=== PATIENT | male | born 1965 | race American Indian/Alaskan Native ===

== ENCOUNTER 2017-08-07 23:22 | Emergency (ER) | payer SELFPAY ==
[2017-08-08 00:41] LABS: Bilirubin,Urine NEG (Negative); Blood,Urine SM (Negative); Color,Urine Yellow (Yellow); Protein,Urine <15 mg/dL mg/dL (Negative); Urobilinogen,Urine < 2.0 mg/dL (<2.0)
--- NOTE | 2017-08-08 05:44 | Cat Scan Report ---
FINAL REPORT EXAM: CT HEAD/BRAIN WO CON HISTORY: headache TECHNIQUE: Routine axial imaging was obtained of the brain without IV contrast. FINDINGS: The ventricular system is appropriate in size and is symmetric. There is no evidence of acute stroke or hemorrhage. The basal cisterns appear normal. The visualized sinuses are clear. The mastoid air cells are well pneumatized. The calvarium appears normal. IMPRESSION: Within normal limits.
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
[2017-08-08] MEDS ORDERED: ZESTRIL PO ONE (06:11)
[2017-08-08 06:16] VITALS: BP 168/104
== END 2017-08-08 06:26 | disposition home or self-care (01) ==
LOC: ED 23:22
DX: I10 Essential (primary) hypertension (principal); F17.200 Nicotine dependence, unspecified, uncomplicated
CPT/HCPCS: 70450; 81001; 99284

== ENCOUNTER 2017-12-03 03:01 | Inpatient (IN) | payer SELFPAY ==
[2017-12-03] MEDS ORDERED: CATAPRES PO ONE (03:24)
[2017-12-03 03:36] LABS: Basophils # (Auto) 0.1 K/mm3 (0.0-0.1); Eosinophils # (Auto) 0.2 K/mm3 (0.0-0.4); Eosinophils % (Auto) 1.7 % (0.0-4.3); Hematocrit 34.1 % (35.5-45.6); Lymphocytes # (Auto) 1.7 K/mm3 (1.2-5.4); Lymphocytes % (Auto) 19.1 % (13.4-35.0); Mean Corpuscular HGB Conc 35 % (32-34); Mean Corpuscular Hemoglobin 33 pg (28-32); Mean Corpuscular Volume 93 fl (84-94); Monocytes # (Auto) 0.5 K/mm3 (0.0-0.8); Monocytes % (Auto) 5.8 % (0.0-7.3); Platelet Count 237 K/mm3 (140-440); Red Blood Count 3.67 M/mm3 (3.65-5.03); Red Cell Distribution Width 14.3 % (13.2-15.2)
--- NOTE | 2017-12-03 03:46 | XRay Report ---
FINAL REPORT EXAM: XR CHEST ROUTINE 2V HISTORY: Shortness of breath TECHNIQUE: PA and lateral views of the chest were obtained. FINDINGS: The heart is mildly enlarged. The lungs reveal diffuse interstitial prominence with thickening of the fissures. Congestive heart failure is suspected. There is minimal pleural fluid in 1 of the costophrenic sulci. The skeletal structures otherwise appear well maintained. IMPRESSION: Cardiomegaly with congestive heart failure pattern.
[2017-12-03 03:53] LABS: Calcium 9.2 mg/dL (8.4-10.2)
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
[2017-12-03] MEDS ORDERED: NITRO-BID 2% TP ONE (04:35)
[2017-12-03] MEDS ORDERED: LASIX 80 MG in NACL 0.9% 50 ML IV ONE (04:36)
[2017-12-03] MEDS ORDERED: NITROSTAT SL ONE (04:36)
[2017-12-03] MEDS ORDERED: BABY ASPIRIN PO ONE (04:42)
[2017-12-03 05:13] LABS: INR 1.11 (0.87-1.13)
[2017-12-03 05:14] LABS: Partial Thromboplastin Time 30.9 Sec. (24.2-36.6)
[2017-12-03 05:21] LABS: Alanine Aminotransferase 25 units/L (7-56); Albumin 3.7 g/dL (3.9-5)
[2017-12-03] MEDS ORDERED: TYLENOL PO PRN (05:31)
[2017-12-03] MEDS ORDERED: SODIUM CHLORIDE FLUSH SYRINGE 10 ML IV PRN (05:31)
[2017-12-03] MEDS ORDERED: ZOFRAN IV PRN (05:31)
[2017-12-03 05:38] LABS: Bilirubin,Direct < 0.2 mg/dL (0-0.2)
--- NOTE | 2017-12-03 05:41 | History and Physical Report ---
History of Present Illness Date of examination: 12/03/17 History of present illness: 51-year-old man with a history of hypertension, noncompliant with medication at times can't emergency room with complaints of shortness of breath, PND, orthopnea times one week. Also complaining his abdomen feeling tight Review of systems Constitutional: no weight loss, chills, fever Ears, eyes, nose, mouth and throat: no nasal congestion, no nasal discharge, no sinus pressure, no vision change, no red eye. Neck: No neck pain or rigidity. Cardiovascular: no chest pain, palpitations Respiratory: no cough Gastrointestinal: no abdominal pain hematochezia Genitourinary : no frequency , no hematuria Musculoskeletal: no joint swelling or muscle ache Integumentary: no rash, no pruritis Neurological: no parathesias, no numbness, no focal weakness Endocrine: no cold or heat intolerance, no polyuria or polydipsia Hematologic/Lymphatic: no easy bruising, no easy bleeding, no gland swelling Allergic/Immunologic: no urticaria, no angioedema. PAST MEDICAL HISTORY: Hypertension PAST SURGICAL HISTORY: Left leg SOCIAL HISTORY: No alcohol, no drugs, smoke 1/2 pack/ day FAMILY HISTORY: Hypertension Medications and Allergies Allergies Allergy/AdvReac Type Severity Reaction Status Date / Time No Known Allergies Allergy Verified 08/07/17 23:34 Home Medications Medication Instructions Recorded Confirmed Last Taken Type Lisinopril [Zestril] 20 mg PO QDAY #30 tablet 08/08/17 Unknown Rx Exam - Physical Exam Narrative exam: Gen. appearance: Patient lying in bed, no apparent distress HEENT: Normocephalic, atraumatic, pupils equally round and reactive to light, extraocular movement intact, and no sclericterus,. No JVD or thyromegaly or nodule,neck supple, no carotid bruit ,mucous membranes moist, no exudate or erythema Heart: S1, S2, regular rate and rhythm Lungs: Crackles, breathing comfortable Abdomen: Positive bowel sounds, non-tender, nondistended, no organomegaly Extremity:no edema cyanosis, clubbing Skin: no rash, dry, warm Neuro: Oriented 3, cranial nerves II-12 intact, speech is fluent, motor and sensory intact - Constitutional Vitals: Temp Pulse Resp BP Pulse Ox 98.4 F 83 18 157/107 100 12/03/17 03:18 12/03/17 05:02 12/03/17 03:18 12/03/17 05:02 12/03/17 03:18 Results - Labs CBC & Chem 7: 12/03/17 03:24 12/03/17 03:24 Labs: Abnormal lab results 12/03/17 12/03/17 12/03/17 Range/Units 03:24 03:24 04:45 Hct 34.1 L (35.5-45.6) % MCH 33 H (28-32) pg MCHC 35 H (32-34) % Seg Neutrophils % 72.4 H (40.0-70.0) % BUN 26 H (9-20) mg/dL Creatinine 2.6 H (0.8-1.5) mg/dL Total Creatine Kinase 204 H (55-170) units/L Troponin T 0.045 H 0.040 H (0.00-0.029) ng/mL NT-Pro-B Natriuret Pep 5821 H (0-900) pg/mL Albumin (3.9-5) g/dL 12/03/17 Range/Units 04:45 Hct (35.5-45.6) % MCH (28-32) pg MCHC (32-34) % Seg Neutrophils % (40.0-70.0) % BUN (9-20) mg/dL Creatinine (0.8-1.5) mg/dL Total Creatine Kinase (55-170) units/L Troponin T (0.00-0.029) ng/mL NT-Pro-B Natriuret Pep (0-900) pg/mL Albumin 3.7 L (3.9-5) g/dL - Imaging and Cardiology EKG: image reviewed Chest x-ray: image reviewed Assessment and Plan Assessment New-onset CHF, probably systolic Hypertension malignant Renal failure, Probably chronic Noncompliance Plan Admit medicine Diurese with IV Lasix, start beta carlotta, aspirin No LUCY inhibitor secondary to the kidney failure Monitor I's and O's, daily weights Check echo, cardiac enzymes, consult cardiology DVT prophylaxis
[2017-12-03 06:57] LABS: Chol/HDL Ratio 4.25 %
[2017-12-03 07:29] LABS: Creatine Kinase MB 3.3 ng/mL (0.0-4.0)
[2017-12-03] MEDS: LASIX IV SCH ×2 (07:56→18:45)
--- NOTE | 2017-12-03 09:39 | Event Note ---
Date: 12/03/17 Patient seen and evaluated medical records reviewed Admitted this morning with chest tightness and shortness of breath Patient feels slightly better denies any chest pain this morning Vital signs reviewed Physical examination unremarkable Assessment and plan: --Chest pain/tightness; Evaluate for acute coronary syndrome, serial cardiac enzymes, echocardiogram Continue current cardiac medications, cardiology evaluation Possible stress test prior to discharge --Elevated cardiac enzymes; probably nonspecific, multiple risk factors Cardiology following, possible stress test prior to discharge if needed --Congestive heart failure; unknown ejection fraction Continue anti-failure medications, input output monitoring, low sodium diet --Hypertension; moderate control, continue current antihypertensives And when necessary hydralazine --Acute kidney injury; vasomotor nephropathy Gentle hydration, avoid nephrotoxins, neurology consult if needed --Ongoing tobacco use; smoking cessation counseling and nicotine patch as needed -DVT prophylaxis; Lovenox Closely monitor the patient and adjust the management as needed Possible discharge in 1-2 days if stable-
[2017-12-03] MEDS: ASPIRIN PO SCH (09:55)
[2017-12-03] MEDS: LOPRESSOR PO SCH ×2 (09:55→21:34)
[2017-12-03] MEDS: SODIUM CHLORIDE FLUSH SYRINGE 10 ML IV SCH ×2 (09:56→21:36)
[2017-12-03] MEDS: LOVENOX SUB-Q SCH (09:56)
[2017-12-03] MEDS ORDERED: LOVENOX SUB-Q SCH (10:00)
[2017-12-03 12:47] LABS: Creatine Kinase MB 3.1 ng/mL (0.0-4.0)
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
[2017-12-04] MEDS: APRESOLINE IV PRN ×2 (05:40→10:29)
[2017-12-04] MEDS: LASIX IV SCH ×2 (05:41→18:58)
[2017-12-04 06:11] LABS: Basophils % (Auto) 0.6 % (0.0-1.8); Eosinophils # (Auto) 0.1 K/mm3 (0.0-0.4); Eosinophils % (Auto) 2.2 % (0.0-4.3); Hemoglobin 12.4 gm/dl (11.8-15.2); Lymphocytes # (Auto) 1.6 K/mm3 (1.2-5.4); Lymphocytes % (Auto) 27.3 % (13.4-35.0); Mean Corpuscular HGB Conc 33 % (32-34); Mean Corpuscular Hemoglobin 32 pg (28-32); Mean Corpuscular Volume 95 fl (84-94); Monocytes # (Auto) 0.3 K/mm3 (0.0-0.8); Monocytes % (Auto) 5.5 % (0.0-7.3); Platelet Count 238 K/mm3 (140-440); Red Blood Count 3.91 M/mm3 (3.65-5.03); Red Cell Distribution Width 14.6 % (13.2-15.2)
[2017-12-04 06:29] LABS: Calcium 0.8 mg/dL (8.4-10.2)
[2017-12-04 08:32] LABS: Albumin 4.8 g/dL (3.9-5)
[2017-12-04 08:48] LABS: Calcium 9.9 mg/dL (8.4-10.2)
[2017-12-04] MEDS: SODIUM CHLORIDE FLUSH SYRINGE 10 ML IV SCH ×2 (10:28→22:55)
[2017-12-04] MEDS: LOVENOX SUB-Q SCH (10:29)
[2017-12-04] MEDS: ASPIRIN PO SCH (10:29)
[2017-12-04] MEDS: LOPRESSOR PO SCH ×2 (10:29→22:55)
--- NOTE | 2017-12-04 11:39 | Progress Note ---
Assessment and Plan Assessment and plan: --Chest pain/tightness; Slightly improved ,serial cardiac enzymes, echocardiogram Continue current management cardiology following Possible stress test prior to discharge --Elevated cardiac enzymes; probably nonspecific, multiple risk factors Cardiology following, possible stress test prior to discharge if needed --Acute systolic congestive heart failure;ejection fraction 35-40% Anti-failure medications, input-output monitoring, low sodium diet --Accelerated Hypertension; continue current antihypertensives Adjust the dosages and when necessary hydralazine --Acute kidney injury; vasomotor nephropathy Gentle hydration, avoid nephrotoxins, neurology consult if needed --Ongoing tobacco use; smoking cessation counseling and nicotine patch as needed -DVT prophylaxis; Lovenox Closely monitor the patient and adjust the management as needed Plan of care reviewed with the patient and the family member at bedside Disposition; follow cardiology evaluation and recommendations may DC home in 1-2 days if stable History Interval history: patient seen and examined medical records reviewed Patient feels better no new complaints Admitted with chest pain and pressure, significantly improved today Alert awake oriented 3 vital signs reviewed Hospitalist Physical - Constitutional Vitals: Temp Pulse Resp BP Pulse Ox 97.8 F 80 20 194/120 95 12/04/17 07:52 12/04/17 07:52 12/04/17 07:52 12/04/17 07:52 12/04/17 07:52 General appearance: Present: no acute distress, well-nourished, obese - EENT Eyes: Present: PERRL, EOM intact - Neck Neck: Present: supple, normal ROM - Respiratory Respiratory effort: normal Respiratory: bilateral: diminished, rales, negative: rhonchi, wheezing - Cardiovascular Rhythm: regular Heart Sounds: Present: S1 & S2 - Extremities Extremities: no ischemia, No edema - Abdominal General gastrointestinal: soft, non-tender, non-distended, normal bowel sounds - Integumentary Integumentary: Present: clear, warm - Psychiatric Psychiatric: appropriate mood/affect, cooperative - Neurologic Neurologic: CNII-XII intact, moves all extremities Results - Labs CBC & Chem 7: 12/04/17 05:19 12/04/17 05:19 Labs: Laboratory Last Values WBC 5.8 K/mm3 (4.5-11.0) 12/04/17 05:19 RBC 3.91 M/mm3 (3.65-5.03) 12/04/17 05:19 Hgb 12.4 gm/dl (11.8-15.2) 12/04/17 05:19 Hct 37.0 % (35.5-45.6) 12/04/17 05:19 MCV 95 fl (84-94) H 12/04/17 05:19 MCH 32 pg (28-32) 12/04/17 05:19 MCHC 33 % (32-34) 12/04/17 05:19 RDW 14.6 % (13.2-15.2) 12/04/17 05:19 Plt Count 238 K/mm3 (140-440) 12/04/17 05:19 Lymph % (Auto) 27.3 % (13.4-35.0) 12/04/17 05:19 [place] % (Auto) 5.5 % (0.0-7.3) 12/04/17 05:19 Eos % (Auto) 2.2 % (0.0-4.3) 12/04/17 05:19 Baso % (Auto) 0.6 % (0.0-1.8) 12/04/17 05:19 Lymph # 1.6 K/mm3 (1.2-5.4) 12/04/17 05:19 [place] # 0.3 K/mm3 (0.0-0.8) 12/04/17 05:19 Eos # 0.1 K/mm3 (0.0-0.4) 12/04/17 05:19 Baso # 0.0 K/mm3 (0.0-0.1) 12/04/17 05:19 Seg Neutrophils % 64.4 % (40.0-70.0) 12/04/17 05:19 Seg Neutrophils # 3.7 K/mm3 (1.8-7.7) 12/04/17 05:19 PT 14.8 Sec. (12.2-14.9) 12/03/17 04:45 INR 1.11 (0.87-1.13) 12/03/17 04:45 APTT 30.9 Sec. (24.2-36.6) 12/03/17 04:45 Sodium 140 mmol/L (137-145) 12/04/17 05:19 Potassium 3.9 mmol/L (3.6-5.0) 12/04/17 05:19 Chloride 95.0 mmol/L (98-107) L 12/04/17 05:19 Carbon Dioxide 21 mmol/L (22-30) L 12/04/17 05:19 Anion Gap 28 mmol/L 12/04/17 05:19 BUN 23 mg/dL (9-20) H 12/04/17 05:19 Creatinine 2.5 mg/dL (0.8-1.5) H 12/04/17 05:19 Estimated GFR 33 ml/min 12/04/17 05:19 BUN/Creatinine Ratio 9 % 12/04/17 05:19 Glucose 100 mg/dL (75-100) 12/04/17 05:19 Calcium 9.9 mg/dL (8.4-10.2) D 12/04/17 07:29 Total Bilirubin 0.80 mg/dL (0.1-1.2) 12/03/17 04:45 Direct Bilirubin < 0.2 mg/dL (0-0.2) 12/03/17 04:45 Indirect Bilirubin 0.6 mg/dL 12/03/17 04:45 AST 24 units/L (5-40) 12/03/17 04:45 ALT 25 units/L (7-56) 12/03/17 04:45 Alkaline Phosphatase 99 units/L (35-129) 12/03/17 04:45 Total Creatine Kinase 211 units/L (55-170) H 12/03/17 12:18 CK-MB (CK-2) 3.1 ng/mL (0.0-4.0) 12/03/17 12:18 CK-MB (CK-2) Rel Index 1.4 (0-4) 12/03/17 12:18 Troponin T 0.025 ng/mL (0.00-0.029) 12/03/17 12:18 NT-Pro-B Natriuret Pep 5821 pg/mL (0-900) H 12/03/17 04:45 Total Protein 6.3 g/dL (6.3-8.2) 12/03/17 04:45 Albumin 4.8 g/dL (3.9-5) 12/04/17 07:29 Albumin/Globulin Ratio 1.4 % 12/03/17 04:45 Triglycerides 178 mg/dL (2-149) H 12/03/17 03:24 Cholesterol 132 mg/dL (50-199) 12/03/17 03:24 LDL Cholesterol Direct 74 mg/dL (50-130) 12/03/17 03:24 HDL Cholesterol 31 mg/dL (40-59) L 12/03/17 03:24 Cholesterol/HDL Ratio 4.25 % 12/03/17 03:24
--- NOTE | 2017-12-04 12:15 | Progress Note ---
Assessment and Plan Patient is feeling better today. Had good diuresis. No chest pain or significant difficulty breathing. Blood pressure is not well controlled. Will add by mouth hydralazine. We may consider increasing the carvedilol to 25 twice a day also. Echocardiogram shows ejection fraction of 35-40%. This is explained to the patient and family members. Continue current management. Will consider ischemic evaluation once he is more stable. - Patient Problems (1) ARF (acute renal failure) Current Visit: Yes Status: Acute Qualifiers: Acute renal failure type: unspecified Qualified Code(s): N17.9 - Acute kidney failure, unspecified (2) Elevated troponin level Current Visit: Yes Status: Acute (3) New onset of congestive heart failure Current Visit: Yes Status: Acute (4) Shortness of breath Current Visit: Yes Status: Acute (5) Uncontrolled hypertension Current Visit: Yes Status: Acute Subjective Date of service: 12/04/17 Interval history: Patient is feeling better today. He had good diuresis. He has no chest pain. Multiple family members are in the room Objective Vital Signs Temp Pulse Resp BP Pulse Ox 12/04/17 11:20 98.0 F 83 20 182/106 97 12/04/17 07:52 97.8 F 80 20 194/120 95 12/04/17 05:40 180/114 12/04/17 04:52 98.3 F 86 20 180/114 97 12/04/17 00:19 98.3 F 84 24 170/110 95 12/03/17 23:00 79 12/03/17 22:00 18 12/03/17 21:34 78 158/94 12/03/17 19:30 70 98 12/03/17 16:39 98.2 F 73 18 155/102 95 12/03/17 13:43 97.7 F 74 18 127/73 94 - Physical Examination General: Appears Well Cardiac: Positive: Reg Rate and Rhythm Lungs: Positive: clear to auscultation Abdomen: Positive: Soft - Labs and Meds Cardiac Enzymes 12/03/17 Range/Units 12:18 CK-MB (CK-2) 3.1 (0.0-4.0) ng/mL CBC 12/04/17 Range/Units 05:19 WBC 5.8 (4.5-11.0) K/mm3 RBC 3.91 (3.65-5.03) M/mm3 Hgb 12.4 (11.8-15.2) gm/dl Hct 37.0 (35.5-45.6) % Plt Count 238 (140-440) K/mm3 Lymph # 1.6 (1.2-5.4) K/mm3 [place] # 0.3 (0.0-0.8) K/mm3 Eos # 0.1 (0.0-0.4) K/mm3 Baso # 0.0 (0.0-0.1) K/mm3 Comprehensive Metabolic Panel 12/04/17 12/04/17 Range/Units 05:19 07:29 Sodium 140 (137-145) mmol/L Potassium 3.9 (3.6-5.0) mmol/L Chloride 95.0 L (98-107) mmol/L Carbon Dioxide 21 L (22-30) mmol/L BUN 23 H (9-20) mg/dL Creatinine 2.5 H (0.8-1.5) mg/dL Glucose 100 (75-100) mg/dL Calcium 0.8 L* D 9.9 D (8.4-10.2) mg/dL Albumin 4.8 (3.9-5) g/dL - Imaging and Cardiology EKG: image reviewed
[2017-12-04] MEDS: APRESOLINE PO SCH ×2 (14:42→23:05)
[2017-12-05 06:19] LABS: Basophils % (Auto) 0.4 % (0.0-1.8); Eosinophils # (Auto) 0.1 K/mm3 (0.0-0.4); Eosinophils % (Auto) 1.5 % (0.0-4.3); Hematocrit 40.4 % (35.5-45.6); Lymphocytes # (Auto) 1.3 K/mm3 (1.2-5.4); Lymphocytes % (Auto) 18.3 % (13.4-35.0); Mean Corpuscular HGB Conc 35 % (32-34); Mean Corpuscular Hemoglobin 32 pg (28-32); Mean Corpuscular Volume 93 fl (84-94); Monocytes # (Auto) 0.5 K/mm3 (0.0-0.8); Monocytes % (Auto) 7.6 % (0.0-7.3); Platelet Count 257 K/mm3 (140-440); Red Blood Count 4.34 M/mm3 (3.65-5.03); Red Cell Distribution Width 14.1 % (13.2-15.2)
[2017-12-05 06:48] LABS: Calcium 9.6 mg/dL (8.4-10.2)
[2017-12-05] MEDS: APRESOLINE IV PRN ×2 (06:51→09:06)
[2017-12-05] MEDS: LASIX IV SCH ×2 (06:52→17:52)
[2017-12-05] MEDS: LOPRESSOR PO SCH ×2 (09:05→21:25)
[2017-12-05] MEDS: LOVENOX SUB-Q SCH (09:06)
[2017-12-05] MEDS: ASPIRIN PO SCH (09:06)
[2017-12-05] MEDS: SODIUM CHLORIDE FLUSH SYRINGE 10 ML IV SCH ×2 (09:10→21:30)
--- NOTE | 2017-12-05 10:19 | Progress Note ---
Assessment and Plan Assessment and plan: --Accelerated Hypertension; uncontrolled blood pressures Increase hydralazine dose, add clonidine if needed, closely monitor Adjust the dosages and when necessary hydralazine --Chest pain/tightness; Slightly improved ,serial cardiac enzymes, echocardiogram Continue current management cardiology following Possible stress test tomorrow --Elevated cardiac enzymes; probably nonspecific, multiple risk factors Cardiology following, stress test tomorrow --Acute systolic congestive heart failure;ejection fraction 35-40% Continue Lasix , beta blockers ,inhibitors in view of kidney injury input-output monitoring, low sodium diet --Acute kidney injury versus acute on chronic kidney disease; vasomotor nephropathy Gentle hydration, avoid nephrotoxins, Nephrology consult requested --Ongoing tobacco use; smoking cessation counseling and nicotine patch as needed -DVT prophylaxis; Lovenox Closely monitor the patient and adjust the management as needed Plan of care reviewed with the patient and the family member at bedside Disposition; follow stress test and blood pressures tomorrow If negative and stable may be discharged home Plan of care is reviewed with the patient and his nurse I also 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 Denies any chest pain or shortness of breath Labile blood pressures. Antihypertensive suggested Cardiology planning stress test more Patient is alert awake oriented 3 Vital signs reviewed Hospitalist Physical - Constitutional Vitals: Temp Pulse Resp BP Pulse Ox 97.9 F 75 20 185/108 93 12/05/17 08:01 12/05/17 09:06 12/05/17 08:01 12/05/17 09:06 12/05/17 08:01 General appearance: Present: no acute distress, well-nourished, obese - EENT Eyes: Present: PERRL, EOM intact - Neck Neck: Present: supple, normal ROM - Respiratory Respiratory effort: normal Respiratory: bilateral: diminished, negative: rales, rhonchi, wheezing - Cardiovascular Rhythm: regular Heart Sounds: Present: S1 & S2 - Extremities Extremities: no ischemia, No edema - Abdominal General gastrointestinal: soft, non-tender, non-distended, normal bowel sounds - Integumentary Integumentary: Present: clear, warm - Psychiatric Psychiatric: appropriate mood/affect, cooperative - Neurologic Neurologic: CNII-XII intact, moves all extremities Results - Labs CBC & Chem 7: 12/05/17 05:10 12/05/17 05:10 Labs: Laboratory Last Values WBC 7.2 K/mm3 (4.5-11.0) 12/05/17 05:10 RBC 4.34 M/mm3 (3.65-5.03) 12/05/17 05:10 Hgb 14.0 gm/dl (11.8-15.2) 12/05/17 05:10 Hct 40.4 % (35.5-45.6) 12/05/17 05:10 MCV 93 fl (84-94) 12/05/17 05:10 MCH 32 pg (28-32) 12/05/17 05:10 MCHC 35 % (32-34) H 12/05/17 05:10 RDW 14.1 % (13.2-15.2) 12/05/17 05:10 Plt Count 257 K/mm3 (140-440) 12/05/17 05:10 Lymph % (Auto) 18.3 % (13.4-35.0) 12/05/17 05:10 [place] % (Auto) 7.6 % (0.0-7.3) H 12/05/17 05:10 Eos % (Auto) 1.5 % (0.0-4.3) 12/05/17 05:10 Baso % (Auto) 0.4 % (0.0-1.8) 12/05/17 05:10 Lymph # 1.3 K/mm3 (1.2-5.4) 12/05/17 05:10 [place] # 0.5 K/mm3 (0.0-0.8) 12/05/17 05:10 Eos # 0.1 K/mm3 (0.0-0.4) 12/05/17 05:10 Baso # 0.0 K/mm3 (0.0-0.1) 12/05/17 05:10 Seg Neutrophils % 72.2 % (40.0-70.0) H 12/05/17 05:10 Seg Neutrophils # 5.2 K/mm3 (1.8-7.7) 12/05/17 05:10 PT 14.8 Sec. (12.2-14.9) 12/03/17 04:45 INR 1.11 (0.87-1.13) 12/03/17 04:45 APTT 30.9 Sec. (24.2-36.6) 12/03/17 04:45 Sodium 142 mmol/L (137-145) 12/05/17 05:10 Potassium 3.9 mmol/L (3.6-5.0) 12/05/17 05:10 Chloride 100.2 mmol/L (98-107) 12/05/17 05:10 Carbon Dioxide 27 mmol/L (22-30) 12/05/17 05:10 Anion Gap 19 mmol/L 12/05/17 05:10 BUN 25 mg/dL (9-20) H 12/05/17 05:10 Creatinine 2.6 mg/dL (0.8-1.5) H 12/05/17 05:10 Estimated GFR 31 ml/min 12/05/17 05:10 BUN/Creatinine Ratio 10 % 12/05/17 05:10 Glucose 99 mg/dL (75-100) 12/05/17 05:10 Calcium 9.6 mg/dL (8.4-10.2) 12/05/17 05:10 Total Bilirubin 0.80 mg/dL (0.1-1.2) 12/03/17 04:45 Direct Bilirubin < 0.2 mg/dL (0-0.2) 12/03/17 04:45 Indirect Bilirubin 0.6 mg/dL 12/03/17 04:45 AST 24 units/L (5-40) 12/03/17 04:45 ALT 25 units/L (7-56) 12/03/17 04:45 Alkaline Phosphatase 99 units/L (35-129) 12/03/17 04:45 Total Creatine Kinase 211 units/L (55-170) H 12/03/17 12:18 CK-MB (CK-2) 3.1 ng/mL (0.0-4.0) 12/03/17 12:18 CK-MB (CK-2) Rel Index 1.4 (0-4) 12/03/17 12:18 Troponin T 0.025 ng/mL (0.00-0.029) 12/03/17 12:18 NT-Pro-B Natriuret Pep 5821 pg/mL (0-900) H 12/03/17 04:45 Total Protein 6.3 g/dL (6.3-8.2) 12/03/17 04:45 Albumin 4.8 g/dL (3.9-5) 12/04/17 07:29 Albumin/Globulin Ratio 1.4 % 12/03/17 04:45 Triglycerides 178 mg/dL (2-149) H 12/03/17 03:24 Cholesterol 132 mg/dL (50-199) 12/03/17 03:24 LDL Cholesterol Direct 74 mg/dL (50-130) 12/03/17 03:24 HDL Cholesterol 31 mg/dL (40-59) L 12/03/17 03:24 Cholesterol/HDL Ratio 4.25 % 12/03/17 03:24
--- NOTE | 2017-12-05 10:32 | Consultation ---
History of Present Illness - Reason for Consult Consult date: 12/05/17 acute renal failure, chronic renal failure, accelerated hypertension - History of Present Illness This is a 52 year old male who has been admitted to the hospital since 12/03/17 with a chief complaint of shortness of breath that was present 1 week prior to coming to this E.R. Patient also reports left leg edema. On evaluation a Chest x-ray was obtained that revealed- Cardiomegaly with congestive heart failure pattern and Echocardiogram was completed that revealed LVEF 35-40%. Patient was started on Lasix 40 mg IV BID. Patient was also noted to be in Hypertensive Emergency with an elevated blood pressure of 212/142. Pertinent labs revealed an elevated serum creatinine of 2.6. Baseline serum creatinine unknown. We are being consulted for management of this patient' s Advanced Renal Failure. Past History Past Medical History: heart failure, hypertension Past Surgical History: No surgical history Social history: no significant social history Family history: no significant family history Medications and Allergies Allergies Allergy/AdvReac Type Severity Reaction Status Date / Time No Known Allergies Allergy Verified 08/07/17 23:34 Home Medications Medication Instructions Recorded Confirmed Last Taken Type Lisinopril [Zestril] 20 mg PO QDAY #30 tablet 08/08/17 12/05/17 Unknown Rx Active Meds: Active Medications Acetaminophen (Tylenol) 650 mg PO Q4H PRN PRN Reason: Pain MILD(1-3)/Fever >100.5/TARIQ Aspirin (Aspirin) 325 mg PO QDAY [facility] Last Admin: 12/05/17 09:06 Dose: 325 mg Atorvastatin Calcium (Lipitor) 40 mg PO QHS [facility] Last Admin: 12/04/17 22:55 Dose: 40 mg Enoxaparin Sodium (Lovenox) 40 mg SUB-Q QDAY@1000 [facility] Last Admin: 12/05/17 09:06 Dose: 40 mg Furosemide (Lasix) 40 mg IV BID@0600,1800 [facility] Last Admin: 12/05/17 06:52 Dose: 40 mg Hydralazine HCl (Apresoline) 10 mg IV Q4HR PRN PRN Reason: Hypertension Last Admin: 12/05/17 09:06 Dose: 10 mg Hydralazine HCl (Apresoline) 75 mg PO Q8HR [facility] Metoprolol Tartrate (Lopressor) 50 mg PO BID [facility] Ondansetron HCl (Zofran) 4 mg IV Q8H PRN PRN Reason: Nausea And Vomiting Sodium Chloride (Sodium Chloride Flush Syringe 10 Ml) 10 ml IV BID [facility] Last Admin: 12/05/17 09:10 Dose: 10 ml Sodium Chloride (Sodium Chloride Flush Syringe 10 Ml) 10 ml IV PRN PRN PRN Reason: LINE FLUSH Review of Systems Constitutional: no weight loss, no weight gain, no fever, no chills, no sweats Ears, nose, mouth and throat: no ear pain, no ear discharge, no tinnitis, no decreased hearing, no nasal congestion, no nasal discharge Cardiovascular: edema, shortness of breath, dyspnea on exertion, high blood pressure, leg edema, no chest pain, no orthopnea, no palpitations, no rapid/ irregular heart beat Respiratory: shortness of breath, dyspnea on exertion, no cough with sputum, no excessive sputum, no hemoptysis Gastrointestinal: no abdominal pain, no nausea, no vomiting, no diarrhea, no constipation, no change in bowel habits, no hematemesis Genitourinary Male: no hematuria, no flank pain, no discharge, no urinary frequency, no urinary hesitancy, no nocturia Musculoskeletal: no neck pain, no shooting arm pain, no arm numbness/tingling, no low back pain, no shooting leg pain, no leg numbness/tingling, no redness of joints Integumentary: no rash, no pruritis, no redness, no sores, no wounds, no jaundice, no boils Neurological: no transient paralysis, no paralysis, no weakness, no parathesias , no numbness, no tingling, no seizures, no syncope Psychiatric: no memory loss, no change in sleep habits, no sleep disturbances, no insomnia, no hypersomnia, no change in appetite, no change in libido, no suicidal ideation Endocrine: no cold intolerance, no heat intolerance, no polyphagia, no excessive thirst, no polydipsia, no polyuria Hematologic/Lymphatic: no easy bruising, no easy bleeding, no lymphadenopathy Exam - Vital Signs Vital signs: Vital Signs Pulse Resp BP Pulse Ox 89 15 138/85 94 12/02/17 23:52 12/02/17 23:52 12/02/17 23:52 12/02/17 23:52 - General Appearance General appearance: well-developed, appears stated age, fatigue EENT: ATNC, PERRL, hearing intact, vision intact Neck: Present: neck supple, trachea midline Respiratory: Decreased Breath Sounds Heart: regular, S1S2 Gastrointestinal: Present: normoactive bowel sounds Integumentary: warm and dry Neurologic: alert and oriented x3 Musculoskeletal: Present: other (Edema to Left leg noted) Psychiatric: agitated Results - Lab Results 12/05/17 05:10 12/05/17 05:10 Most recent lab results Calcium 9.6 mg/dL (8.4-10.2) 12/05/17 05:10 Assessment and Plan Acute on Chronic Kidney Disease likely secondary to Hypertensive Nephrosclerosis and Cardiorenal Syndrome: -Renal function reviewed. Admission serum creatinine was 2.6, renal function remains stable since admission, current serum creatinine today is also 2.6 -Continue diuresis with Lasix 40 mg IV BID -Obtain urine lytes -Will do GN work-up if proteinuria present -Obtain renal ultrasound -Avoid Nephrotoxic agents -Obtain daily weights -Monitor I/O's -Will monitor renal function closely Acute systolic congestive heart failure: -LVEF:35-40% -Continue on Lasix -Cardiology onboard Hypertension: -On Lasix/Hydralazine/Metoprolol -Adjust regimen as needed
--- NOTE | 2017-12-05 13:47 | Progress Note ---
Assessment and Plan Cont present management. No ACEI/ARB at this time in setting of renal insufficiency. Plan for lexiscan MPI stress test in AM. NPO after MN. The patient has been seen in conjunction with Dr. DEREK Ochoa who agrees with the assessment and plan of care. - Patient Problems (1) ARF (acute renal failure) Current Visit: Yes Status: Acute Qualifiers: Acute renal failure type: unspecified Qualified Code(s): N17.9 - Acute kidney failure, unspecified (2) Elevated troponin level Current Visit: Yes Status: Acute (3) New onset of congestive heart failure Current Visit: Yes Status: Acute (4) Shortness of breath Current Visit: Yes Status: Acute (5) Uncontrolled hypertension Current Visit: Yes Status: Acute Subjective Date of service: 12/05/17 Principal diagnosis: HF Interval history: pt resting in bed, c/o fatigue today. Objective Last Vital Signs Temp 99.4 F 12/05/17 11:39 Pulse 82 12/05/17 11:39 Resp 20 12/05/17 11:39 BP 141/67 12/05/17 11:39 Pulse Ox 97 12/05/17 11:39 - Physical Examination General: Appears Well HEENT: Positive: PERRL Neck: Positive: neck supple, trachea midline Cardiac: Positive: Reg Rate and Rhythm, S1/S2 Lungs: Positive: Decreased Breath Sounds Neuro: Positive: Grossly Intact Abdomen: Positive: Soft - Labs and Meds CBC 12/05/17 Range/Units 05:10 WBC 7.2 (4.5-11.0) K/mm3 RBC 4.34 (3.65-5.03) M/mm3 Hgb 14.0 (11.8-15.2) gm/dl Hct 40.4 (35.5-45.6) % Plt Count 257 (140-440) K/mm3 Lymph # 1.3 (1.2-5.4) K/mm3 [place] # 0.5 (0.0-0.8) K/mm3 Eos # 0.1 (0.0-0.4) K/mm3 Baso # 0.0 (0.0-0.1) K/mm3 Comprehensive Metabolic Panel 12/05/17 Range/Units 05:10 Sodium 142 (137-145) mmol/L Potassium 3.9 (3.6-5.0) mmol/L Chloride 100.2 (98-107) mmol/L Carbon Dioxide 27 (22-30) mmol/L BUN 25 H (9-20) mg/dL Creatinine 2.6 H (0.8-1.5) mg/dL Glucose 99 (75-100) mg/dL Calcium 9.6 (8.4-10.2) mg/dL - Imaging and Cardiology EKG: image reviewed Echo: report reviewed (12/04/2017: EF 35-40%, mod LVH, impaired relaxation, RV systolic function mildly reduced, mod MR, trace TR) - Telemetry EKG Rhythm: Sinus Rhythm
--- NOTE | 2017-12-05 14:20 | Ultrasound Report ---
ULTRASOUND RENAL BILATERAL HISTORY: Renal failure. TECHNIQUE: transabdominal ultrasound with color Doppler interrogation. COMPARISON: none. FINDINGS: The kidneys are normal size, contour and position. There is increased renal cortical echotexture bilaterally consistent with nonspecific renal parenchymal disease. Corticomedullary differentiation is preserved. No evidence for cystic disease, mass, nephrolithiasis, hydronephrosis or perinephric fluid. The views of the bladder and the region of the ureters appear normal. IMPRESSION: Renal parenchymal disease.
[2017-12-05] MEDS: APRESOLINE PO SCH ×3 (14:22→23:55)
[2017-12-06] MEDS: APRESOLINE PO SCH (06:55)
[2017-12-06] MEDS: LASIX IV SCH (06:56)
[2017-12-06 06:58] LABS: Basophils % (Auto) 0.5 % (0.0-1.8); Eosinophils % (Auto) 0.5 % (0.0-4.3); Hematocrit 39.7 % (35.5-45.6); Hemoglobin 13.8 gm/dl (11.8-15.2); Lymphocytes # (Auto) 1.5 K/mm3 (1.2-5.4); Lymphocytes % (Auto) 17.5 % (13.4-35.0); Mean Corpuscular HGB Conc 35 % (32-34); Mean Corpuscular Hemoglobin 32 pg (28-32); Mean Corpuscular Volume 93 fl (84-94); Monocytes # (Auto) 0.7 K/mm3 (0.0-0.8); Monocytes % (Auto) 8.1 % (0.0-7.3); Platelet Count 268 K/mm3 (140-440); Red Blood Count 4.29 M/mm3 (3.65-5.03); Red Cell Distribution Width 14.8 % (13.2-15.2)
[2017-12-06 07:21] LABS: Calcium 9.2 mg/dL (8.4-10.2)
[2017-12-06] MEDS ORDERED: LEXISCAN IV ONE (09:30)
[2017-12-06] MEDS ORDERED: APRESOLINE PO SCH (10:08)
--- NOTE | 2017-12-06 10:08 | Progress Note ---
Assessment and Plan acute systolic HF Acute renal insufficency htn uncontrolled chol nstemi type 2 rec: increase hydralzine 100mg tid, add norvasc 5mg and add imdur 30mg and cont lopressor and lasix 40mg daily, no ischemia on stress, probably non ischemic cmp , if bp better this afternoon may discharge from [facility] point of view Subjective Date of service: 12/06/17 Principal diagnosis: HF Interval history: pt denies any sob today Objective Vital Signs Temp Pulse Resp BP BP Pulse Ox 12/06/17 07:35 98.0 F 82 20 186/101 94 12/06/17 06:55 85 185/108 12/06/17 05:26 98.4 F 20 12/06/17 04:52 81 185/108 96 12/06/17 00:28 98.3 F 20 12/05/17 23:51 76 162/101 98 12/05/17 23:49 73 97 12/05/17 21:36 20 12/05/17 21:26 93 H 191/121 12/05/17 21:25 93 H 191/121 12/05/17 20:30 83 12/05/17 20:20 89 191/121 96 12/05/17 16:56 98.0 F 81 20 164/80 96 12/05/17 16:55 99.0 F 70 20 126/72 95 12/05/17 14:22 82 141/67 12/05/17 11:39 99.4 F 82 20 141/67 97 - Physical Examination General: Appears Well HEENT: Positive: PERRL Neck: Positive: neck supple, trachea midline Cardiac: Positive: Reg Rate and Rhythm Lungs: Positive: clear to auscultation Neuro: Positive: Grossly Intact Abdomen: Positive: Soft Extremities: Absent: edema - Labs and Meds CBC 12/06/17 Range/Units 05:53 WBC 8.8 (4.5-11.0) K/mm3 RBC 4.29 (3.65-5.03) M/mm3 Hgb 13.8 (11.8-15.2) gm/dl Hct 39.7 (35.5-45.6) % Plt Count 268 (140-440) K/mm3 Lymph # 1.5 (1.2-5.4) K/mm3 Person # 0.7 (0.0-0.8) K/mm3 Eos # 0.0 (0.0-0.4) K/mm3 Baso # 0.0 (0.0-0.1) K/mm3 Comprehensive Metabolic Panel 12/06/17 Range/Units 05:53 Sodium 138 (137-145) mmol/L Potassium 3.3 L (3.6-5.0) mmol/L Chloride 97.4 L (98-107) mmol/L Carbon Dioxide 25 (22-30) mmol/L BUN 27 H (9-20) mg/dL Creatinine 2.6 H (0.8-1.5) mg/dL Glucose 98 (75-100) mg/dL Calcium 9.2 (8.4-10.2) mg/dL - Imaging and Cardiology EKG: image reviewed Pharmacologic stress test: report reviewed (no signficant ischemia noted ef 30% probably non ischemic cmp) Echo: report reviewed (12/04/2017: EF 35-40%, mod LVH, impaired relaxation, RV systolic function mildly reduced, mod MR, trace TR) - Telemetry EKG Rhythm: Sinus Rhythm
--- NOTE | 2017-12-06 10:24 | Progress Note ---
Assessment and Plan Acute on Chronic Kidney Disease likely secondary to Hypertensive Nephrosclerosis and Cardiorenal Syndrome: -Renal function reviewed. Renal function remains stable, current serum creatinine 2.6, likely secondary to Hypertensive Nephrosclerosis but will rule out GN -Renal Ultrasound reviewed- Renal parenchymal disease. No Hydronephrosis. -Obtain urine lytes- urine protein, urine creatinine and urine sodium-not yet collected -Obtain JULIA, ANCA, C3, C4, HIV, Hep panel, SPEP, Anti-GBM today -Avoid Nephrotoxic agents -Obtain daily weights -Monitor I/O's -Will monitor renal function closely -Patient requesting to be discharged, patient to complete blood work above prior to discharge and patient will need to follow-up with us in 7 days of discharge at [facility]: [address] [place] [id number]. . Acute systolic congestive heart failure: -LVEF:35-40% -Scheduled for stress test today -Continue on Lasix 40 mg po daily -Cardiology onboard Hypertension: -On Lasix/Amlodipine/Hydralazine/Metoprolol -Increase Amlodipine to 10 mg po daily -Adjust regimen as needed Hypokalemia: -Gentle repletion with KCl 10 meq po x 1 Subjective Date of service: 12/06/17 Principal diagnosis: HF Interval history: Patient seen lying in bed with multiple family members at bedside. Patient agitated stating he wants to go home. 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 Objective - Vital Signs Vital signs: Vital Signs - 12hr 12/05/17 12/05/17 12/06/17 23:49 23:51 00:28 Temperature 98.3 F Pulse Rate 73 76 Respiratory 20 Rate Blood Pressure 162/101 O2 Sat by Pulse 97 98 Oximetry 12/06/17 12/06/17 12/06/17 04:52 05:26 06:55 Temperature 98.4 F Pulse Rate 81 85 Respiratory 20 Rate Blood Pressure 185/108 185/108 O2 Sat by Pulse 96 Oximetry 12/06/17 07:35 Temperature 98.0 F Pulse Rate 82 Respiratory 20 Rate Blood Pressure 186/101 O2 Sat by Pulse 94 Oximetry - General Appearance General appearance: well-developed, appears stated age, fatigue EENT: ATNC, PERRL, hearing intact, vision intact Neck: no JVD, supple Respiratory: Present: Clear to Ascultation Cardiology: regular, S1S2 Gastrointestinal: normoactive bowel sounds Integumentary: warm and dry Neurologic: alert and oriented x3 Musculoskeletal: other (Left leg with mild edema) Psychiatric: agitated - Lab 12/06/17 05:53 12/06/17 05:53 Most recent lab results Calcium 9.2 mg/dL (8.4-10.2) 12/06/17 05:53 Phosphorus 3.40 mg/dL (2.5-4.5) 12/06/17 05:53
[2017-12-06] MEDS: LOVENOX SUB-Q SCH (10:43)
[2017-12-06] MEDS: LOPRESSOR PO SCH (10:44)
[2017-12-06] MEDS: ASPIRIN PO SCH (10:44)
[2017-12-06] MEDS: SODIUM CHLORIDE FLUSH SYRINGE 10 ML IV SCH (10:45)
--- NOTE | 2017-12-06 10:52 | Treadmill Report ---
NUCLEAR CARDIAC PERFUSION STUDY REASON FOR STUDY: Abnormal troponin and shortness of breath. IMAGING PROTOCOL: The patient received 10 mCi of Technetium 99m Tetrofosmin for resting image and 28 mCi of Technetium 99m Tetrofosmin for stress imaging. The imaging for the whole procedure was completed 30-90 minutes following the initial injection of Technetium 99m Tetrofosmin. The SPECT imaging in the 180 degree arc was performed in the right anterior oblique projection. Computerized reconstruction of the images was performed for analysis. IMAGING RESULTS: Cavity is mildly dilated on both stress and rest. Distribution radionuclide is normal in the anterior, inferior, septal, and apical regions. Gated SPECT shows moderate global hypokinesis, EF 30% with global hypokinesis. The patient infused Lexiscan with no EKG changes. SUMMARY: 1. Negative Lexiscan EKG. 2. No significant myocardial ischemia noted, but moderate left ventricular dysfunction, ejection fraction 30%. We would suggest echo for quantification of left ventricular function, but no significant ischemia noted. [facility]# [id number] TIM/LOKI
[2017-12-06] MEDS ORDERED: NORVASC PO SCH ×2 (11:00→11:30)
[2017-12-06] MEDS ORDERED: IMDUR PO SCH (11:30)
[2017-12-06] MEDS ORDERED: K-DUR PO NR (11:30)
[2017-12-06 12:31] VITALS: BP 151/94
[2017-12-06 12:58] LABS: Creatinine,Urine 245.8 mg/dL (0.1-20.0)
[2017-12-06 13:48] LABS: Hepatitis A Antibody IgM Non-Reactive (NonReactive); Hepatitis B Core IgM Non-Reactive (NonReactive); Hepatitis B Surface Antigen Non-Reactive (Negative); Hepatitis C Virus Antibody Non-Reactive (NonReactive)
--- NOTE | 2017-12-06 14:34 | Discharge Summary ---
Providers - Providers Date of Admission: 12/03/17 05:31 Date of discharge: 12/06/17 Attending physician: GENESIS SAAB 12/03/17 05:31 Consult to Physician [CONS] Routine Comment: Consulting Provider: MICHEAL NELSON Physician Instructions: Reason For Exam: chf 12/05/17 10:04 Consult to Physician [CONS] Routine Comment: Consulting Provider: NICOLE BERMAN Physician Instructions: Reason For Exam: Ac vs Ac on Chr Kidney disease Primary care physician: HEART SURGEON Hospitalization Reason for admission: worsening shortness of breath/chest tightness Condition: Stable Pertinent studies: Chest x-ray; cardiomegaly with congestive heart failure pattern Echocardiogram; moderate concentric LVH ejection fraction 35-40% Renal ultrasound; renal parenchymal disease Exercise stress test; negative Lexiscansignificant ischemia moderate left ventricle dysfunction EF 30% Hospital course: Very pleasant 51-year-old male patient, turned 52, 2 days ago , was admitted through emergency roomwith worsening shortness of breath orthopnea and chest tightness ,Initial evaluation is consistent with positive cardiac troponins, symptoms and findings consistent with systolic congestive heart failure Admitted symptomatically managed, evaluated by cardiology, underwent echocardiogram, stress test the reports of the chest as mentioned above Patient also had acute versus acute on chronic kidney disease, followed by nephrology during the hospital stay Patient had hypertensive urgency with very difficult to control hypertension requiring multiple antihypertensives Stress test was negative, blood pressures were brought to reasonable control, cardiology cleared for discharge Today he is comfortable no new complaints, Vital signs stable Physical examination prior to discharge is unremarkable Smoking cessation counseling done Strongly advised compliance with medications and diet Patient verbalized understanding, patient was stable at discharge Discharge diagnosis; --Accelerated Hypertension; well controlled --Chest pain/tightness; negative stress test -- type 2NSTEMI --Acute systolic congestive heart failure;EF 35% --Acute kidney injury versus acute on chronic kidney disease; --Ongoing tobacco use; smoking cessation and nicotine patch advised --Medical noncompliance; counseling Disposition: TO HOME OR SELFCARE Time spent for discharge: 32 min Core Measure Documentation - Palliative Care Palliative Care/ Comfort Measures: Not Applicable - Core Measures Any of the following diagnoses?: heart failure - Heart Failure Discharge Requirements LUCY/ARB for LVSD if EF <40%: No Reason for no LUCY/ARB: Renal impairment Beta carlotta at discharge: Yes Exam - Constitutional Vitals: Temp Pulse Resp BP Pulse Ox 98.1 F 71 20 151/94 98 12/06/17 12:29 12/06/17 12:56 12/06/17 12:29 12/06/17 12:56 12/06/17 12:29 General appearance: Present: no acute distress, well-nourished - EENT Eyes: Present: PERRL, EOM intact - Neck Neck: Present: supple, normal ROM - Respiratory Respiratory effort: normal Respiratory: bilateral: diminished, negative: rales, rhonchi, wheezing - Cardiovascular Rhythm: regular Heart Sounds: Present: S1 & S2 - Extremities Extremities: no ischemia, No edema Peripheral Pulses: within normal limits - Abdominal General gastrointestinal: Present: soft, non-tender, non-distended, normal bowel sounds - Integumentary Integumentary: Present: clear, warm - Musculoskeletal Musculoskeletal: strength equal bilaterally - Psychiatric Psychiatric: appropriate mood/affect, cooperative - Neurologic Neurologic: CNII-XII intact, moves all extremities Plan Activity: no restrictions Diet: other (cardiac diet) Special Instructions: smoking cessation Additional Instructions: Smoking cessation advice. Advised to be compliant with medications and diet and follow-up visits Follow up with: PRIMARY CARE, [Primary Care Provider] - 3-5 Days BEATRIZ VELASCO MD [Staff Physician] - 7 Days VIVIANA KUMAR MD [Staff Physician] - 7 Days Prescriptions: amLODIPine [Norvasc] 10 mg PO QDAY #30 tablet Aspirin EC [Aspirin Enteric Coated TAB] 81 mg PO QDAY #30 tablet. AtorvaSTATin [Lipitor] 40 mg PO QHS #30 tablet Furosemide [Lasix TAB] 40 mg PO QDAY #30 tablet hydrALAZINE [Apresoline TAB] 100 mg PO Q8HR #90 tablet ISOSORBIDE MONOnitrate [Imdur ER] 30 mg PO QDAY #30 tablet Metoprolol [Lopressor TAB] 50 mg PO BID #60 tablet Nicotine [Habitrol] 21 mg TD DAILY #30 patch
[2017-12-07] MEDS ORDERED: LASIX PO SCH (10:00)
[2017-12-08 23:07] LABS: Albumin 3.9 g/dL (3.8-4.8); Gamma Globulin 1.4 g/dL (0.8-1.7)
== END 2017-12-06 16:47 | disposition home or self-care (01) | DRG 280 ==
LOC: ED 03:01 → 4A 05:31
PROVIDERS: ADMIT Internal Medicine; ATTEND Internal Medicine
DX: I21.A1 Myocardial infarction type 2 (principal); I50.21 Acute systolic (congestive) heart failure; N17.0 Acute kidney failure with tubular necrosis; I13.0 Hypertensive heart and chronic kidney disease with heart failure and stage 1 through stage 4 chronic kidney disease, or unspecified chronic kidney disease; I16.1 Hypertensive emergency; I08.1 Rheumatic disorders of both mitral and tricuspid valves; E87.6 Hypokalemia; N18.9 Chronic kidney disease, unspecified; F17.210 Nicotine dependence, cigarettes, uncomplicated; Z82.49 Family history of ischemic heart disease and other diseases of the circulatory system; Z71.6 Tobacco abuse counseling; Z91.14 Patient's other noncompliance with medication regimen; Z71.89 Other specified counseling
CPT/HCPCS: 36415; 71046; 76770; 78452; 80048; 80061; 80074; 82040; 82310; 82330; 82550; 82553; 82570; 83520; 83880; 84100; 84156; 84165; 84300; 84484; 85025; 85610; 85730; 86021; 86038; 86160; 87806; 93005; 93010; 93017; 93306; 96374; A9270-GY; A9502; J0360; J1650; J1940; J2785